=== PATIENT | female | born 1975 | race Caucasian/White ===

== ENCOUNTER → 2017-11-10 14:15 | Outpatient (CLI) | payer SELFPAY ==
--- NOTE | 2017-11-10 14:17 | HPBI_ITS ---
MAMMOGRAPHY - BILATERAL SCREENING REASON FOR EXAM: Female, 41 years old. Routine annual screening examination. PERTINENT HISTORY: Right breast lump. TECHNIQUE: Digital bilateral breast zuleima (3D mammographic acquisition) in the CC and MLO projections. 2-D mediolateral oblique (MLO) and craniocaudad (CC) views of both breasts were obtained. Exaggerated craniocaudad view of the right breast was obtained as well. CAD: Full Field Digital Mammography with Computer Added Detection was performed. COMPARISON: None. Baseline examination. FINDINGS: Breast Composition: The breasts are extremely dense, which lowers the sensitivity of mammography. There are no dominant masses. Amorphous calcifications are seen in the axillary region of the right breast. A biopsy is recommended for further evaluation. No other significant abnormalities are identified. HPBI/DIAG MAMM W/CAD, BILAT IMPRESSION: Microcalcifications are seen in the axillary region of the right breast as described. A biopsy is recommended. An ultrasound of the left breast at the palpable site is recommended as well. ASSESSMENT CATEGORY: BIRADS Category 4: Suspicious - Biopsy Should Be Considered. A letter regarding these results will be sent to the patient by the facility within 30 days. Approximately 10% of breast cancers are not detected by mammography. A normal mammogram should not delay biopsy of a clinically suspicious abnormality. [id number] Electronically Signed: Rahul Smith MD at 15:44 EST Tel [phone], Service support ,
--- NOTE | 2017-11-10 15:03 | US_ITS ---
STUDY: ULTRASOUND BREAST - LEFT REASON FOR EXAM: Female, 41 years old. Left breast lump. TECHNIQUE: Axial and longitudinal images of the LEFT breast were performed with a high resolution ultrasound transducer. COMPARISON: Comparison is made with prior mammogram dated November 10, 2017. Comparison is also made with prior ultrasound of the left breast dated November 30, 2016. FINDINGS: LEFT Breast: There is a 5 mm x 7 mm x 5 mm cyst at the 7:00 position of the breast at 2 cm from the nipple. US/Breast Limited Unilateral IMPRESSION: 5 mm x 7 mm x 5 mm cyst at the 7:00 position of the breast at 2 cm from the nipple. ASSESSMENT CATEGORY: BIRADS Category 2: Benign. A letter regarding these results will be sent to the patient by the facility within 30 days. Electronically Signed: Rahul Smith MD at 8:25 EST Tel [phone], Service support ,
== END ==
PROVIDERS: Family Provider Internal Medicine; PCP Internal Medicine; Visit Provider Internal Medicine
DX: N63.20 Unspecified lump in the left breast, unspecified quadrant (principal); R92.1 Mammographic calcification found on diagnostic imaging of breast
CPT/HCPCS: 76642; 77062; 77066; G0279

== ENCOUNTER → 2017-11-17 11:08 | Outpatient (CLI) | payer SELFPAY ==
--- NOTE | 2017-11-17 | BRBX_PTH ---
PATIENT: ANUPAMA BARTON LOC: [facility] U#:[id number] AGE/SX: 49/F ROOM: RE11/17/[address]: Dr. Salo Hodges MD : 1975 BED: DIS: SPEC #: [id number] RECD: 11/17/17 14:34 STATUS: JOSE GIO #: [id number] GELY: 11/17/17 00:[address]: Salo Hodges DEPT: SURGICAL PATHOLOGY RECD BY: Zane Gaston ENTERED: 11/17/17 14:34 SP TYPE: BREAST BX OTHR DR: Dr. Gretchen Weeks DO Tissues: Right breast, NOS Procedures: Surgery Specimen Level IV HEADER OPERATION: Right stereotactic breast biopsy PRE-OP DIAGNOSIS: Right breast axillary microcalcifications TISSUE SUBMITTED: Right breast core tissue ISCHEMIC TIME: 1 minute FIXATION TIME: 56 hours MICROSCOPIC DIAGNOSIS Right breast, stereotactic core biopsy: Fibrocystic changes and intraductal hyperplasia without atypia. Focal microcalcification. Negative for malignancy. MIKE:roro 11/20/17 COMMENT Correlation with clinical, radiologic findings and appropriate follow up are necessary. MICROSCOPIC DESCRIPTION Slides are reviewed. GROSS DESCRIPTION Received is one container labeled with the patient's name and not further designated. The specimen consists of multiple irregular fragments of pink-white soft tissue that in aggregate measure 4 x 3 x 0.2 cm. The specimen is submitted in its entirety in two cassettes. / AM:roro 11/17/17 TC:5 CPT: 85974
--- NOTE | 2017-11-17 12:03 | PCM.OPRPT ---
Problem List (1) Abnormal mammogram of right breast Status: Acute Report of Operation Date of Procedure: 11/17/17 Pre-Operative Diagnosis: Microcalcifications upper outer quadrant right breast Post-Operative Diagnosis: Coarse and fine microcalcifications upper quadrant right breast Surgery/Procedure Performed:: Stereotactic needle core biopsy upper outer quadrant right breast Description of Surgical Findings:: Timeout and informed consent was obtained. 41-year-old female was taken to the stereotactic unit. She was placed prone on the table. The right breast was placed in a lateral medial view. The grouping of calcifications were identified. This was combination of several coarse calcifications and several fine calcifications. Stereotactic images were obtained. Digital information was obtained on a single target site. Target on residential door installer was selected replacing image #2. The breast was prepped with Betadine. 1% lidocaine was used as a local anesthetic. A total of 10 cc was used. Local was instilled. Then a stab incision was created. The resolve needle was advanced to prefire depth. The microcalcifications were noted to be relatively superficial. Stereotactic images are obtained suggesting adequate localization. The device was fired. The core length had to be diminished to 18 mm. 6 cores were taken from 9:00 to 3:00 superiorly. Specimen mammograms obtained with 1 of the cord suggesting some faint calcifications. I subsequently obtain 6 more cores. At that point the tissue quality was diminishing. I left a minute marking clip at the 12 o'clock position. On fast view demonstrated a marking clip seemingly in good position with now absence of several of the previous calcifications. I felt that adequate sampling had been achieved. The specimen had already been placed in formalin. She was released from device pressure was held for hemostasis. Steri-Strips Telfa OpSite dressing applied. She was given activity and wound care instructions. Follow-up CC and mediolateral oblique views were obtained. She will be given final results as soon as they are available. At this point I am anticipating a benign finding. At this point I am anticipating likely right unilateral mammogram follow-up in 6 months. Salo Hodges M.D., F.A.C.S. Type of Anesthesia:: Local
--- NOTE | 2017-11-17 12:08 | OP.PCM_ITS ---
Problem List (1) Abnormal mammogram of right breast Status: Acute Report of Operation Date of Procedure: 11/17/17 Pre-Operative Diagnosis: Microcalcifications upper outer quadrant right breast Post-Operative Diagnosis: Coarse and fine microcalcifications upper quadrant right breast Surgery/Procedure Performed:: Stereotactic needle core biopsy upper outer quadrant right breast Description of Surgical Findings:: Timeout and informed consent was obtained. 41-year-old female was taken to the stereotactic unit. She was placed prone on the table. The right breast was placed in a lateral medial view. The grouping of calcifications were identified. This was combination of several coarse calcifications and several fine calcifications. Stereotactic images were obtained. Digital information was obtained on a single target site. Target on breakdown man was selected replacing image #2. The breast was prepped with Betadine. 1% lidocaine was used as a local anesthetic. A total of 10 cc was used. Local was instilled. Then a stab incision was created. The resolve needle was advanced to prefire depth. The microcalcifications were noted to be relatively superficial. Stereotactic images are obtained suggesting adequate localization. The device was fired. The core length had to be diminished to 18 mm. 6 cores were taken from 9:00 to 3:00 superiorly. Specimen mammograms obtained with 1 of the cord suggesting some faint calcifications. I subsequently obtain 6 more cores. At that point the tissue quality was diminishing. I left a minute marking clip at the 12 o' clock position. On fast view demonstrated a marking clip seemingly in good position with now absence of several of the previous calcifications. I felt that adequate sampling had been achieved. The specimen had already been placed in formalin. She was released from device pressure was held for hemostasis. Steri-Strips Telfa OpSite dressing applied. She was given activity and wound care instructions. Follow-up CC and mediolateral oblique views were obtained. She will be given final results as soon as they are available. At this point I am anticipating a benign finding. At this point I am anticipating likely right unilateral mammogram follow-up in 6 months. Salo Hodges M.D., F.A.C.S. Type of Anesthesia:: Local
== END ==
PROVIDERS: Family Provider Internal Medicine; PCP Internal Medicine; Visit Provider Surgery
DX: N60.11 Diffuse cystic mastopathy of right breast (principal); N60.91 Unspecified benign mammary dysplasia of right breast; R92.0 Mammographic microcalcification found on diagnostic imaging of breast; N60.02 Solitary cyst of left breast
CPT/HCPCS: 19081; 88305; J7050